=== PATIENT | female | born 1970 ===

== ENCOUNTER 2017-10-24 14:22 | Emergency (ER) | payer OTHER ==
[2017-10-24 14:26] VITALS: BP 153/80; PULSE 92; RESP 20; TEMP 98.1; O2SAT 99
--- NOTE | 2017-10-24 15:24 | C.PDOC ---
History Of Present Illness 46 year old female with no significant PMHx presents to the ED with complaints of left knee pain since 09/27/2017. Patient reports she struck her knee when getting out of a car on and pain has been progressively worsening. Patient has been taking Tylenol and using Voltaren topical gel with no relief. Patient denies weakness, numbness, or other complaints at this time. Time Seen by Provider: 10/24/17 14:35 Chief Complaint (Nursing): Lower Extremity Problem/Injury History Per: Patient History/Exam Limitations: no limitations Onset/Duration Of Symptoms: Days (1 month approximately) Current Symptoms Are (Timing): Still Present Recent travel outside of the [place]: No - Knee Description Of Injury: Struck Against Object Alleviating Factor(s): OTC Pain Medication Past Medical History Reviewed: Historical Data, Nursing Documentation, Vital Signs Vital Signs: Last Vital Signs Temp 98.1 F 10/24/17 14:25 Pulse 92 H 10/24/17 14:25 Resp 20 10/24/17 14:25 BP 153/80 H 10/24/17 14:25 Pulse Ox 99 10/25/17 17:06 - Medical History PMH: Depression Family History: States: Unknown Family Hx - Social History Hx Tobacco Use: Yes Hx Alcohol Use: No Hx Substance Use: No - Immunization History Hx Tetanus Toxoid Vaccination: No Hx Influenza Vaccination: No Hx Pneumococcal Vaccination: No Review Of Systems Constitutional: Negative for: Fever, Chills Musculoskeletal: Positive for: Other (left knee pain) Skin: Negative for: Bruising Neurological: Negative for: Weakness, Numbness Physical Exam - Physical Exam Appears: Non-toxic, No Acute Distress Skin: Warm, Dry, No Rash Extremity: Normal ROM (full ROM of left knee), Tenderness (tenderness to medial aspect of left knee ), No Pedal Edema, No Calf Tenderness, Capillary Refill (<2 seconds ), No Deformity, No Swelling, Other (no laxity) Pulses: Left Dorsalis Pedis: Normal, Right Dorsalis Pedis: Normal Neurological/Psych: Oriented x3, Normal Speech, Normal Cognition, Normal Motor, Normal Sensation Gait: Steady ED Course And Treatment O2 Sat by Pulse Oximetry: 99 (RA) Pulse Ox Interpretation: Normal Progress Note: Patient was given Tylenol and kiesha bandage was applied. Medical Decision Making Medical Decision Making: sprained knee x approx 1 month, no swelling, redness or warmth. from, tender medial aspect. kiesha bandage applied. f/u ortho. unable to take nsaids, bothers her stomach. Disposition Counseled Patient/Family Regarding: Diagnosis, Need For Followup, Rx Given - Disposition Referrals: Joe Hdz III, MD [Staff Provider] - Disposition: HOME/ ROUTINE Disposition Time: 15:22 Condition: STABLE Additional Instructions: Wear kiesha bandage for comfort. Take Tylenol every 6 hours and continue using volateren gel to knee, apply cold compresses several times a day to knee. Follow up with orthopedist as soon as possible. call for an appointment. Prescriptions: Acetaminophen [Tylenol 325mg tab] 650 mg PO Q4 #50 tab Instructions: Knee Sprain (ED) Forms: [facility] (K[place]), General Discharge Instructions - Clinical Impression Clinical Impression: Left knee sprain - PA / [employer] / Resident Statement MD/DO has reviewed & agrees with the documentation as recorded. - Scribe Statement The provider has reviewed the documentation as recorded by the Scribe Opal Mar All medical record entries made by the Scribe were at my direction and personally dictated by me. I have reviewed the chart and agree that the record accurately reflects my personal performance of the history, physical exam, medical decision making, and the department course for this patient. I have also personally directed, reviewed, and agree with the discharge instructions and disposition.
== END 2017-10-24 15:34 | disposition home or self-care (01) ==
LOC: C.ER 14:22
DX: S83.92XA Sprain of unspecified site of left knee, initial encounter (principal); W22.8XXA Striking against or struck by other objects, initial encounter